=== PATIENT | female | born 1990 | race Caucasian/White ===

== ENCOUNTER 2017-05-06 12:48 | Emergency (ER) | payer OTHER ==
[~2017-05-06] VITALS: Ht 158.8 cm; Wt 61.0 kg
[~2017-05-06 12:48] MED LIST: PRENTAB26 PO
[2017-05-06 12:59] VITALS: TEMP 36.7; Ht 158.8 cm; Wt 61.0 kg
[2017-05-06] MEDS ORDERED: SODIUM CHLORIDE 0.9% 1000ML 500 ML IV STA (13:15)
--- NOTE | 2017-05-06 13:29 | EMERGENCY ROOM VISIT NOTE ---
History Report prepared by Sam: Moira Pickering Under the Supervision of: Dr. Franky Agarwal M.D. First contact with patient: 13:10 Chief Complaint: SHORTNESS OF BREATH Stated Complaint: DIZZY,LIGHT HEADED,SOB Nursing Triage Summary: Patient reports she has been having dizziness intermittently for approx one week also c/o shortness of breath. Patient unable to get into her pcp. History of Present Illness The patient is a 27 year old female who presents to the Emergency Room with complaints of intermittent shortness of breath for the past 6 days. She states that she has episodes where she gets lightheaded, dizzy, short of breath, and feels like she is going to pass out. She has to bend over to catch her breath. The patient has not had much of an appetite for the past 4 days. She feels bloated and nauseated. She thought that she might be dehydrated so she has been trying to drink more water. She notes diarrhea. The patient has had generalized body aches and joint pain. She had a recent injury to one of her legs which resulted in some bruising. She states that her legs have been swollen. Last week she went camping and tubing with her family but denies any recent tick bites. She denies fevers, sore throat, cough, chest pain, vomiting, urinary symptoms, rash, and any sick contacts. She also denies any recent long trips or history of blood clots. The patient has concern that she might be . She states that her current symptoms are similar to how she felt with her previous pregnancies. She denies any missed periods, but states that her periods are irregular so it would be difficult to know. She has had two negative urine tests since her symptoms started. The patient called her PCP's office today and they were unable to see her in the office, so they sent her to the ED for further evaluation. Source of History: patient Onset: 6 days ago Position: other (respiratory) Quality: other (shortness of breath) Timing: intermittent Modifying Factors (Relieving): other (bending over) Associated Symptoms: + nausea, + diarrhea, No fevers, No sorethroat, No cough, No chest pain, No vomiting, No urinary symptoms, No rash Note: Pt notes lightheadedness, dizziness, body aches, and joint pain. Review of Systems See HPI for pertinent positives & negatives. A total of 10 systems reviewed and were otherwise negative. Past Medical & Surgical Medical Problems: (1) Abdominal pain complicating (2) Active labor at term (3) Irregular contractions (4) Family History No pertinent history stated. Social History Smoking Status: Never Smoker Alcohol Use: occasionally Drug Use: none Marital Status: single Occupation Status: unemployed Current/Historical Medications Scheduled Doxycycline Hyclate (Vibramycin), 100 MG PO BID Allergies Coded Allergies: No Known Allergies (Unverified , 08/11/14) Physical Exam Vital Signs Date Time Temp Pulse Resp B/P (MAP) Pulse Ox O2 Delivery O2 Flow Rate FiO2 05/06/17 14:22 62 16 108/65 100 Room Air 05/06/17 13:31 89 111/72 100 81 114/72 66 115/73 05/06/17 12:59 36.7 84 20 116/78 99 Room Air Physical Exam GENERAL: Patient is in no acute distress. HEENT: No acute trauma, normocephalic atraumatic, mucous membranes moist, no nasal congestion, no scleral icterus. NECK: No stridor, no adenopathy, no meningismus, trachea is midline. LUNGS: Clear to auscultation bilaterally, no wheeze, no rhonchi, breath sounds equal. HEART: Without murmurs gallops or rubs, regular rate and rhythm. ABDOMEN: Soft, nontender, bowel sounds positive, no hernias, no peritonitis. EXTREMITIES: No cyanosis or edema, full range of motion of all the joints without pain or difficulty, no signs for acute trauma. NEUROLOGIC: Oriented x 3, no acute motor or sensory deficits, no focal weakness. SKIN: No rash, no jaundice, no diaphoresis. Medical Decision & Procedures ER Provider Diagnostic Interpretation: Orthostatic vital signs are negative. Radiology results as stated below per my review and radiologist interpretation: CHEST ONE VIEW PORTABLE HISTORY: 27 years-old Female EVALUATE ALTERED MENTAL STATUS/WEAKNESS COMPARISON: None available TECHNIQUE: Portable upright AP view of the chest FINDINGS: Cardiomediastinal and hilar silhouettes are within normal limits. No pneumothorax, pleural effusion, focal airspace consolidation or overt pulmonary edema. The bones are grossly intact. Upper abdominal structures are within normal limits. IMPRESSION: Normal chest radiograph. The above report was generated using voice recognition software. It may contain grammatical, syntax or spelling errors. Electronically signed by: Jeremy Gusman M.D. 05/06/2017 1:40 PM Dictated Date/Time: 05/06/2017 1:39 PM Laboratory Results 05/06/17 13:25 Red Blood Count 4.88, Mean Corpuscular Volume 87.1, Mean Corpuscular Hemoglobin 29.1, Mean Corpuscular Hemoglobin Concent 33.4, Mean Platelet Volume 11.0, Neutrophils (%) (Auto) 47.2, Lymphocytes (%) (Auto) 41.7, Monocytes (%) (Auto) 9.2, Eosinophils (%) (Auto) 1.3, Basophils (%) (Auto) 0.4, Neutrophils # (Auto) 2.15, Lymphocytes # (Auto) 1.90, Monocytes # (Auto) 0.42, Eosinophils # (Auto) 0.06, Basophils # (Auto) 0.02 05/06/17 13:25 Test 05/06/17 13:20 05/06/17 13:25 05/06/17 13:35 Urine Color YELLOW Urine Appearance CLEAR (CLEAR) Urine pH 5.5 (4.5-7.5) Urine Specific [place] 1.014 (1.000-1.030) Urine Protein NEG (NEG) Urine Glucose (UA) NEG (NEG) Urine Ketones NEG (NEG) Urine Occult Blood NEG (NEG) Urine Nitrite NEG (NEG) Urine Bilirubin NEG (NEG) Urine Urobilinogen NEG (NEG) Urine Leukocyte Esterase NEG (NEG) White Blood Count 4.56 K/uL (4.8-10.8) Red Blood Count 4.88 M/uL (4.2-5.4) Hemoglobin 14.2 g/dL (12.0-16.0) Hematocrit 42.5 % (37-47) Mean Corpuscular Volume 87.1 fL (80-100) Mean Corpuscular Hemoglobin 29.1 pg (25-34) Mean Corpuscular Hemoglobin Concent 33.4 g/dl (32-36) Platelet Count 189 K/uL (130-400) Mean Platelet Volume 11.0 fL (7.4-10.4) Neutrophils (%) (Auto) 47.2 % Lymphocytes (%) (Auto) 41.7 % Monocytes (%) (Auto) 9.2 % Eosinophils (%) (Auto) 1.3 % Basophils (%) (Auto) 0.4 % Neutrophils # (Auto) 2.15 K/uL (1.4-6.5) Lymphocytes # (Auto) 1.90 K/uL (1.2-3.4) Monocytes # (Auto) 0.42 K/uL (0.11-0.59) Eosinophils # (Auto) 0.06 K/uL (0-0.5) Basophils # (Auto) 0.02 K/uL (0-0.2) RDW Standard Deviation 43.3 fL (36.4-46.3) RDW Coefficient of Variation 13.5 % (11.5-14.5) Immature Granulocyte % (Auto) 0.2 % Immature Granulocyte # (Auto) 0.01 K/uL (0.00-0.02) Anion Gap 6.0 mmol/L (3-11) Est Creatinine Clear Calc Drug Dose 90.4 ml/min Estimated GFR () 124.4 Estimated GFR (Non- 107.3 BUN/Creatinine Ratio 8.1 (10-20) Calcium Level 9.0 mg/dl (8.5-10.1) Magnesium Level 2.1 mg/dl (1.8-2.4) Total Bilirubin 0.7 mg/dl (0.2-1) Aspartate Amino Transf (AST/SGOT) 20 U/L (15-37) Alanine Aminotransferase (ALT/SGPT) 30 U/L (12-78) Alkaline Phosphatase 61 U/L (45-117) Troponin I < 0.015 ng/ml (0-0.045) Total Protein 7.9 gm/dl (6.4-8.2) Albumin 4.2 gm/dl (3.4-5.0) Globulin 3.7 gm/dl (2.5-4.0) Albumin/Globulin Ratio 1.1 (0.9-2) Thyroid Stimulating Hormone (TSH) 5.360 uIu/ml (0.300-4.500) Free Thyroxine 0.95 ng/dl (0.80-1.60) Human Chorionic Gonadotropin, Qual NEG (NEG) Lyme Disease IgG Antibody POS (NEG) Bedside D-Dimer 171 ng/mlFEU (0-450) Laboratory results reviewed by me. Medications Administered Medications (Trade) Dose Ordered Sig/Sanjay Route Start Time Stop Time Status Last Admin Dose Admin Sodium Chloride 500 ml @ 999 mls/hr Q31M STAT IV 05/06/17 13:15 05/06/17 13:45 DC 05/06/17 13:35 999 MLS/HR ECG Indication: SOB/dyspnea Rate (beats per minute): 70 Rhythm: sinus with SA Findings: nonspecific-ST abn, no acute ischemic change ED Course 1311: The patient was evaluated in room B10. A complete history and physical exam was performed. 1315: NSS 500 ml @ 999 mls/hr IV 1515: Vibramycin 100 mg PO 1516: I reassessed the patient at this time. She is feeling better and resting comfortably. I discussed the results and treatment plan with the patient. I answered all pertaining questions that she had. She expressed understanding and verbalized agreement. The patient will be discharged home. Medical Decision Differential diagnoses includes dehydration, Lyme disease, UTI, electrolyte imbalance, anemia, , pneumonia, PE, thyroid disorder. There is no leukocytosis or concerning anemia. No significant electrolyte abnormality, kidney failure or hepatitis. The patient appears to be in a euthyroid state. testing was negative. Orthostatic vital signs were negative. Urinalysis does not show infection. EKG shows a sinus rhythm, no acute ischemia. Cardiac enzyme testing times one is not consistent with acute cardiac injury. Chest film does not show pneumonia, mediastinal widening or pneumothorax. Lyme disease testing was positive. D-dimer testing was negative. With a negative d-dimer and my low suspicion for PE, I will stop the workup for this diagnosis. The patient presents with some fatigue, joint aching, shortness of breath and weakness. Workup here suggests possible Lyme disease. Patient was given IV saline and oral doxycycline. She is being discharged on doxycycline twice a day for 21 days. A send out confirmatory Lyme test is pending. The patient will follow with her doctors office. If worsening, she will return. She was happy with discharge home. Impression Primary Impression: Fatigue Additional Impression: Lyme disease Scribe Attestation The scribe's documentation has been prepared under my direction and personally reviewed by me in its entirety. I confirm that the note above accurately reflects all work, treatment, procedures, and medical decision making performed by me. Departure Information Dispostion Home / Self-Care Prescriptions Doxycycline Hyclate (VIBRAMYCIN) 100 Mg Cap 100 MG PO BID for 21 Days, #42 CAP Prov: Feese, Franky J.,M.D. 05/06/17 Referrals Deidre Xie (PCP) Forms HOME CARE DOCUMENTATION FORM, IMPORTANT VISIT INFORMATION Patient Instructions My [facility] Additional Instructions doxycycline 2x per day for 21 days follow with your [facility] md for a recheck and results of the send out lyme test return if worsening Problem Qualifiers Primary Impression: Fatigue Fatigue type: unspecified Qualified Codes: R53.83 - Other fatigue
--- NOTE | 2017-05-06 13:42 | DIAGNOSTIC IMAGING REPORT ---
CHEST ONE VIEW PORTABLE HISTORY: 27 years-old Female EVALUATE ALTERED MENTAL STATUS/WEAKNESS COMPARISON: None available TECHNIQUE: Portable upright AP view of the chest FINDINGS: Cardiomediastinal and hilar silhouettes are within normal limits. No pneumothorax, pleural effusion, focal airspace consolidation or overt pulmonary edema. The bones are grossly intact. Upper abdominal structures are within normal limits. IMPRESSION: Normal chest radiograph. The above report was generated using voice recognition software. It may contain grammatical, syntax or spelling errors. Electronically signed by: Jeremy Gusman M.D. 05/06/2017 1:40 PM Dictated Date/Time: 05/06/2017 1:39 PM
[2017-05-06 13:46] LABS: BASO % 0.4 %; BASO ABS # 0.02 K/uL (0-0.2); COMPLETE YES; EOS % 1.3 %; HEMATOCRIT 42.5 % (37-47); IG% 0.2 %; LYMPH % 41.7 %; MEAN CELL VOLUME 87.1 fL (80-100); MEAN CORPUSCULAR HEMOGLOBIN 29.1 pg (25-34); MEAN CORPUSCULAR HGB CONC 33.4 g/dl (32-36); MONO % 9.2 %; NEUT % 47.2 %; PLATELET COUNT 189 K/uL (130-400); RED BLOOD COUNT 4.88 M/uL (4.2-5.4); WHITE BLOOD COUNT 4.56 K/uL (4.8-10.8)
[2017-05-06 14:01] LABS: ALT/SGPT 30 U/L (12-78); AST/SGOT 20 U/L (15-37); BLOOD UREA NITROGEN 6 mg/dl (7-18); BUN/CREATININE RATIO 8.1 (10-20); CARBON DIOXIDE 26 mmol/L (21-32); CHLORIDE 108 mmol/L (98-107); CREATININE 0.77 mg/dl (0.60-1.20); GLUCOSE 83 mg/dl (70-99); MAGNESIUM 2.1 mg/dl (1.8-2.4); POTASSIUM 3.6 mmol/L (3.5-5.1); SODIUM 140 mmol/L (136-145)
[2017-05-06 14:12] LABS: ALB/GLOB RATIO 1.1 (0.9-2); ALKALINE PHOSPHATASE 61 U/L (45-117)
[2017-05-06 14:16] LABS: PREG INTERNAL NEGATIVE QC NEG CLEAR BACKGROUND; PREG INTERNAL POSITIVE QC POS CONTROL LINE
[2017-05-06 14:23] LABS: URINE APPEARANCE CLEAR (CLEAR); URINE BILIRUBIN NEG (NEG); URINE COLOR YELLOW; URINE NITRITE NEG (NEG); URINE PH 5.5 (4.5-7.5); URINE SPECIFIC GRAVITY 1.014 (1.000-1.030); UROBILINOGEN NEG (NEG); ZZUR CULT IF INDIC CLEAN CATCH NO
[2017-05-06 14:26] LABS: MANUAL MICROSCOPIC REQUIRED? NO; REVIEW REQ? NO
[2017-05-06 14:58] LABS: LYME DISEASE AB IGG POS (NEG); LYME DISEASE AB IGM EQUIVOCAL (NEG)
[2017-05-06] MEDS ORDERED: DOXYCYCLINE HYCLATE 100 MG CAP PO ONE (15:15)
[2017-05-06] MEDS ORDERED: DOXY100C PO (15:28)
[2017-05-06 15:51] VITALS: BP 99/62; PULSE 75; O2SAT 100
[2017-05-13 10:43] LABS: 18KDIGG BAND REACTIVE (NONREACTIVE); 23KDIGG BAND REACTIVE (NONREACTIVE); 23KDIGM BAND REACTIVE (NONREACTIVE); 28KDIGG BAND REACTIVE (NONREACTIVE); 30KDIGG BAND NONREACTIVE (NONREACTIVE); 39KDIGG BAND REACTIVE (NONREACTIVE); 39KDIGM BAND NONREACTIVE (NONREACTIVE); 41KDIGG BAND REACTIVE (NONREACTIVE); 41KDIGM BAND REACTIVE (NONREACTIVE); 45KDIGG BAND REACTIVE (NONREACTIVE); 58KDIGG BAND REACTIVE (NONREACTIVE); 66KDIGG BAND NONREACTIVE (NONREACTIVE); 93KDIGG BAND REACTIVE (NONREACTIVE)
== END 2017-05-06 15:52 | disposition home or self-care (01) ==
LOC: C.EDB 12:49
DX: R53.83 Other fatigue (principal); A69.20 Lyme disease, unspecified

== ENCOUNTER 2017-05-13 22:28 | Emergency (ER) | payer OTHER ==
[~2017-05-13] VITALS: Ht 158.8 cm; Wt 61.0 kg
[~2017-05-13 22:28] MED LIST changes: +DOXY100C PO; -PRENTAB26 PO
[2017-05-13 22:32] VITALS: TEMP 36.8; Ht 158.8 cm; Wt 61.0 kg
[2017-05-13] MEDS ORDERED: SODIUM CHLORIDE 0.9% 1000ML 1,000 ML IV STA (23:24)
[2017-05-13] MEDS ORDERED: ONDANSETRON INJ 2 MG/ML 2 ML VIAL IV STA (23:28)
[2017-05-13 23:41] VITALS: O2SAT 98
--- NOTE | 2017-05-13 23:41 | EMERGENCY ROOM VISIT NOTE ---
History Report prepared by Sam: Nancy Mars Under the Supervision of: Dr. Melania Pinto D.O. First contact with patient: 23:09 Chief Complaint: DIZZY Stated Complaint: DIZZY,LIGHTHEADED History of Present Illness The patient is a 27 year old female who presents to the Emergency Room with complaints of worsening dizziness starting six hours ago. The patient states that she was here in the ED a week ago and was diagnosed with Lyme disease. The patient states that she was told to come back to the ED if her symptoms worsened and she states that they seemed to worsen greatly. She states that she had episodes of intermittent dizziness, but this has been constant. She states that she got a headache and decided to take Tylenol with no relief. She states that she tried to lie down to take a nap, but had no relief from that either. The patient reports that when she got up after her nap, she fell three times and experienced blurred vision. She reports that this is when she decided to come back to the ED. She complains of a headache, nausea, blurred vision, and feeling like she doesn't have control of her body. The patient denies abdominal pain, ever having vertigo, and ever having symptoms like this before. She notes that she has been taking Doxycycline for a week and has gotten a bad sunburn from it from walking into and out of work from her car. She notes that she was bit by a weird bug the other day and denies ever seeing a tick. She notes a history of irritable bowel syndrome with increased diarrhea from the doxycycline. he patient states that after standing up she currently feels diaphoretic and near syncope. The patient currently rates her pain as a 6/10 in severity. Source of History: patient Onset: six hours ago Position: other (global) Symptom Intensity: 6/10 Quality: other (global) Timing: worsening Associated Symptoms: + headache, + diaphoresis, + nausea, No abdominal pain Note: The patient complains of vision loss, feeling like she doesn't have control of her body, a sunburn, being bit by a bug, and feeling near syncope. The patient denies ever having vertigo, symptoms like this before, and ever seeing a tick. Review of Systems See HPI for pertinent positives & negatives. A total of 10 systems reviewed and were otherwise negative. Past Medical & Surgical Medical Problems: (1) Abdominal pain complicating (2) Active labor at term (3) Irregular contractions (4) Family History Patient reports no known family medical history. Social History Smoking Status: Never Smoker Smokeless Tobacco Use: No Alcohol Use: none Drug Use: none Marital Status: single Occupation Status: unemployed Current/Historical Medications Scheduled Doxycycline Hyclate (Vibramycin), 100 MG PO BID Allergies Coded Allergies: No Known Allergies (Unverified , 05/13/17) Physical Exam Vital Signs Date Time Temp Pulse Resp B/P (MAP) Pulse Ox O2 Delivery O2 Flow Rate FiO2 05/14/17 03:50 63 05/14/17 03:36 73 16 99 05/14/17 03:31 108/66 05/14/17 03:06 65 19 98 05/14/17 03:01 109/65 05/14/17 02:48 113/63 05/14/17 02:36 65 05/14/17 02:06 91 27 05/14/17 01:36 65 21 100 05/14/17 01:31 99/55 05/14/17 01:15 104/66 05/14/17 01:03 64 16 100 05/14/17 00:33 63 22 99 05/14/17 00:03 80 15 98 05/13/17 23:58 103 15 100 05/13/17 23:41 98 05/13/17 23:28 62 13 99 05/13/17 23:28 71 05/13/17 23:25 124/68 05/13/17 22:32 36.8 77 18 117/76 98 Room Air Physical Exam HEENT: Head - normocephalic and atraumatic. Pupils are equal, round, and reactive to light. Extraocular eye muscles are intact and sclera are anicteric. There is no obvious nystagmus. Ears - bilaterally patent canals with noninjected tympanic membranes and no evidence of hemotympanum. Nose - moist nasal mucosa without discharge. Mouth - moist buccal mucosa. Oropharynx is nonerythematous and there is no tonsillar exudate or edema noted. Neck: Supple; no JVD, nuchal rigidity, cervical lymphadenopathy, or auscultated bruits. Heart: Regular rate and rhythm. There is a normal S1 and S2 with no murmurs, clicks, or gallops appreciated. Lungs: Clear to auscultation bilaterally with no wheezes, rales, or rhonchi. Abdomen: Soft, completely nontender, nondistended, with good bowel sounds. There are no palpable pulsatile masses or hepatosplenomegaly. There is no guarding, rigidity, or rebound noted. Extremities: No evidence of cyanosis, clubbing, or edema. There are easily palpable peripheral pulses. The patient has an area of erythema on the right lateral thigh which looks consistent with an insect bite. No obvious erythema migrans. Neuro:The patient is awake and alert, oriented to day, time, and place. Muscle strength is 5/5 in all 4 extremities. 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 There are no cerebellar signs. Cranial nerves 2-12 are intact. Patellar reflexes are 2/4. Medical Decision & Procedures Laboratory Results 05/13/17 23:40 Red Blood Count 4.70, Mean Corpuscular Volume 87.7, Mean Corpuscular Hemoglobin 30.0, Mean Corpuscular Hemoglobin Concent 34.2, Mean Platelet Volume 11.3, Neutrophils (%) (Auto) 45.5, Lymphocytes (%) (Auto) 42.7, Monocytes (%) (Auto) 9.5, Eosinophils (%) (Auto) 1.6, Basophils (%) (Auto) 0.5, Neutrophils # (Auto) 2.60, Lymphocytes # (Auto) 2.44, Monocytes # (Auto) 0.54, Eosinophils # (Auto) 0.09, Basophils # (Auto) 0.03 05/13/17 23:40 Test 05/13/17 23:40 05/13/17 23:45 05/14/17 02:25 White Blood Count 5.71 K/uL (4.8-10.8) Red Blood Count 4.70 M/uL (4.2-5.4) Hemoglobin 14.1 g/dL (12.0-16.0) Hematocrit 41.2 % (37-47) Mean Corpuscular Volume 87.7 fL (80-100) Mean Corpuscular Hemoglobin 30.0 pg (25-34) Mean Corpuscular Hemoglobin Concent 34.2 g/dl (32-36) Platelet Count 175 K/uL (130-400) Mean Platelet Volume 11.3 fL (7.4-10.4) Neutrophils (%) (Auto) 45.5 % Lymphocytes (%) (Auto) 42.7 % Monocytes (%) (Auto) 9.5 % Eosinophils (%) (Auto) 1.6 % Basophils (%) (Auto) 0.5 % Neutrophils # (Auto) 2.60 K/uL (1.4-6.5) Lymphocytes # (Auto) 2.44 K/uL (1.2-3.4) Monocytes # (Auto) 0.54 K/uL (0.11-0.59) Eosinophils # (Auto) 0.09 K/uL (0-0.5) Basophils # (Auto) 0.03 K/uL (0-0.2) RDW Standard Deviation 43.5 fL (36.4-46.3) RDW Coefficient of Variation 13.4 % (11.5-14.5) Immature Granulocyte % (Auto) 0.2 % Immature Granulocyte # (Auto) 0.01 K/uL (0.00-0.02) Anion Gap 5.0 mmol/L (3-11) Est Creatinine Clear Calc Drug Dose 88.1 ml/min Estimated GFR () 120.6 Estimated GFR (Non- 104.0 BUN/Creatinine Ratio 12.8 (10-20) Calcium Level 9.0 mg/dl (8.5-10.1) Total Bilirubin 0.6 mg/dl (0.2-1) Aspartate Amino Transf (AST/SGOT) 20 U/L (15-37) Alanine Aminotransferase (ALT/SGPT) 28 U/L (12-78) Alkaline Phosphatase 60 U/L (45-117) Total Protein 7.7 gm/dl (6.4-8.2) Albumin 4.0 gm/dl (3.4-5.0) Globulin 3.7 gm/dl (2.5-4.0) Albumin/Globulin Ratio 1.1 (0.9-2) Urine Color YELLOW Urine Appearance CLEAR (CLEAR) Urine pH 7.0 (4.5-7.5) Urine Specific [place] 1.009 (1.000-1.030) Urine Protein NEG (NEG) Urine Glucose (UA) NEG (NEG) Urine Ketones NEG (NEG) Urine Occult Blood NEG (NEG) Urine Nitrite NEG (NEG) Urine Bilirubin NEG (NEG) Urine Urobilinogen NEG (NEG) Urine Leukocyte Esterase NEG (NEG) Urine Test NEG (NEG) CSF Color COLORLESS CSF Appearance CLEAR CSF WBC 1 /uL (0-5) CSF RBC 0 /uL (0) CSF Xanthrochromic NO XANTHOCHROMIA CSF Cell Count Tube # 4 CSF Chemistry Tube # 2 CSF Glucose 53 mg/dl (40-70) CSF Total Protein 55.2 mg/dl (15.0-45.0) Laboratory results per my review. Medications Administered Medications (Trade) Dose Ordered Sig/Sanjay Route Start Time Stop Time Status Last Admin Dose Admin Sodium Chloride 1,000 ml @ 999 mls/hr Q1H1M STAT IV 05/13/17 23:24 05/14/17 00:24 DC 05/14/17 00:05 999 MLS/HR Ondansetron HCl (Zofran Inj) 4 mg NOW STAT IV 05/13/17 23:28 05/13/17 23:30 DC 05/14/17 00:04 4 MG Procedure 2324: Ordered NSS 1000 ml @ 999 mls/hr IV. 2328: Ordered Zofran Inj 4 mg IV. Lumbar Puncture Indication: neurological symptoms with associated Lyme. Verbal consent was obtained after the risks and benefits were explained, including but not limited to headache, bleeding/clotting, scarring, infection, pain, and bone/joint/nerve damage. At this time, the risks of the procedure are less than the risks of NOT performing the procedure. A time out was taken and the correct patient and site identified. The patient was placed in the draped over a tray table position and the back was prepped with betadine and draped in the standard fashion. The L3 intervertebral space was identified, anesthetized locally with 1% lidocaine without epinephrine, and the spinal needle was inserted through the skin with the bevel parallel to the dural fibers. The needle was carefully advanced into the lumbar cistern and 4 tubes of clear CSF was obtained. The stylet was replaced and the needle was removed. A bandaid was placed and the patient was placed in the supine position. The patient tolerated the procedure well and there were no complications. ECG Indication: other (dizziness) Rate (beats per minute): 64 Rhythm: normal sinus Findings: no acute ischemic change, no ectopy ED Course 2315: Past medical records reviewed. The patient was evaluated in room B5. A complete history and physical exam was performed. Laboratory studies were drawn as above. 2324: Ordered NSS 1000 ml @ 999 mls/hr IV. 2328: Ordered Zofran Inj 4 mg IV. 0138: I reevaluated the patient and she still feels like she has a loss of control of legs. We discussed the risks and benefits of doing a spinal tap. I performed a spinal tap. Please see procedure note. 0330: Discussed the patient's case with Dr. Jazmyne Nagy. She suggested the patient follow up with her PCP in the next 48 hours if her legs remain weak for imaging. 0338: Upon reevaluation, the patient is okay. Her headache has improved. I discussed findings and results with her. She verbalized agreement of the treatment plan. The patient was discharged home. Medical Decision This is a 27-year-old female patient who presents to the emergency department with sudden onset of dizziness, headache, and lower extremity weakness. Differential diagnoses include lyme carditis, lyme meningitis, disseminated Lyme disease, vertigo, MS, or dehydration. LABS: Negative . Negative urinalysis. No leukocytes. Normal H&H. Normal renal function. Normal LFTs. CSF: 1 white blood cell 0 red blood cells Glucose 53 Protein 55 No Xanthrochromic No organisms The patient was diagnosed with Lyme disease one week ago and started on doxycycline. She decided onset tonight of headache, dizziness and the feeling that she lost control of her lower extremities. We considered the possibility of vertigo, dehydration, but also the possibility of disseminated Lyme disease or Lyme meningitis. The patient had no neurological findings on exam. She had no leukocytosis or fever. She did not feel sick. Also, she had a negative spinal tap. The Lyme testing in the CSF is a reference send out test. The patient is feeling better at the time of discharge. She will follow up with her PCP in the next 48 hours if symptoms persist as the patient may require CT or MRI testing. She was encouraged to continue taking the course of doxycycline return here to the emergency department if symptoms worsened. Consults Time Called: [phone] Consulting Physician: Dr. Jazmyne Nagy Returned Call: [phone] Discussed the patient's case with Dr. Jazmyne Nagy. She suggested the patient follow up with her PCP in the next 48 hours if her legs remain weak for imaging. Impression Primary Impression: Fall Additional Impression: Lyme disease Scribe Attestation The scribe's documentation has been prepared under my direction and personally reviewed by me in its entirety. I confirm that the note above accurately reflects all work, treatment, procedures, and medical decision making performed by me. Departure Information Dispostion Home / Self-Care Referrals No Doctor, Assigned (PCP) Forms HOME CARE DOCUMENTATION FORM, IMPORTANT VISIT INFORMATION Patient Instructions My [facility] Additional Instructions Rest. Keep yourself well-hydrated. Return to the ER for worsening neurological symptoms, fevers, more severe headaches Follow up with PCP in next 2 days for a recheck. Problem Qualifiers Primary Impression: Fall Encounter type: initial encounter Qualified Codes: W19.XXXA - Unspecified fall, initial encounter
[2017-05-14 00:04] LABS: BASO % 0.5 %; BASO ABS # 0.03 K/uL (0-0.2); COMPLETE YES; EOS % 1.6 %; HEMATOCRIT 41.2 % (37-47); IG% 0.2 %; LYMPH % 42.7 %; LYMPH ABS # 2.44 K/uL (1.2-3.4); MEAN CELL VOLUME 87.7 fL (80-100); MEAN CORPUSCULAR HGB CONC 34.2 g/dl (32-36); MEAN PLATELET VOLUME 11.3 fL (7.4-10.4); MONO % 9.5 %; NEUT % 45.5 %; PLATELET COUNT 175 K/uL (130-400); WHITE BLOOD COUNT 5.71 K/uL (4.8-10.8)
[2017-05-14 00:06] LABS: URINE APPEARANCE CLEAR (CLEAR); URINE BILIRUBIN NEG (NEG); URINE COLOR YELLOW; URINE NITRITE NEG (NEG); URINE SPECIFIC GRAVITY 1.009 (1.000-1.030); UROBILINOGEN NEG (NEG)
[2017-05-14 00:14] LABS: MANUAL MICROSCOPIC REQUIRED? NO; REVIEW REQ? NO
[2017-05-14 00:23] LABS: BUN/CREATININE RATIO 12.8 (10-20); CREATININE 0.79 mg/dl (0.60-1.20); POTASSIUM 3.9 mmol/L (3.5-5.1)
[2017-05-14 00:26] LABS: ALB/GLOB RATIO 1.1 (0.9-2)
[2017-05-14 02:44] LABS: CSF APPEARANCE CLEAR; CSF CHEMISTRY TUBE # 2; CSF COLOR COLORLESS; CSF XANTHOCHROMIC NO XANTHOCHROMIA
[2017-05-14 03:01] LABS: CSF TOTAL PROTEIN 55.2 mg/dl (15.0-45.0)
[2017-05-14 03:31] VITALS: BP 108/66
[2017-05-14 03:36] VITALS: O2SAT 99
[2017-05-14 03:50] VITALS: PULSE 63
[2017-05-19 08:01] LABS: LYME IGM CSF NO BANDS DETECTED
--- NOTE | 2017-05-23 12:20 | Pharmacy Progress Note ---
ED Pharmacist Culture FollowUp Date of Service: May 23, 2017. CSF Lyme IgG and IgM Immunoblots were forwarded to me today. The patient had been dx with Lyme Dz ~1wk prior to presenting to the ER again on 05/13 with c/o dizziness, h/a, nausea and blurred vision. In addition to this she stated she had been falling and felt like she had less control over her lower extremities. She did not have a fever, vertigo, or nuchal rigidity per provider's assessment. Nor did she have a leukocytosis or CSF consistent with meningitis. She was discharged from the ED and instructed to continue the Doxycycline that was prescribed earlier and was asked to f/u with PCP in 48 hours. The CSF Lyme IgG and IgM revealed the presence of IgG antibodies, however the usefulness of this test to dx lyme meningitis is questionable as one needs to compare the concentrations of anti-lyme antibodies in both the CSF and serum after one has diluted each fluid so that there are equivalent concentrations of immunoglobulins. At this point on measures the amounts of anti-lyme antibodies in each fluid. An increased concentration of anti-Lyme antibodies relative to the serum is consistent with lyme meningitis. This additional testing was not performed, thus the presence of antibodies in the CSF could represent compartmental antibody production or transudation of antibodies from the plasma as well and does not definitively rule in meningitis. Dr Saldana had already reviewed these results and asked that someone contact the patient to be sure she has f/u with her PCP. I did call the patient today ), and she stated that she had cancelled her appt with Dr Smith and [place]cheduled [place] [facility] [place] states that she still has light- headedness and dizziness as well as nausea and diarrhea. He stated she does get ARMENTA's but not as bad as the day she presented to the ER. She states she is attempting to stay well hydrated. I advised the patient that if her symptoms are concerning she should have f/u sooner and that returning to the ER is an option.
== END 2017-05-14 03:54 | disposition home or self-care (01) ==
LOC: C.EDB 22:29
DX: R42 Dizziness and giddiness (principal); R51 Headache; W19.XXXA Unspecified fall, initial encounter; A69.20 Lyme disease, unspecified

== ENCOUNTER 2017-09-01 18:21 | Emergency (ER) | payer OTHER ==
[~2017-09-01] VITALS: Ht 158.8 cm; Wt 60.7 kg
[2017-09-01 18:26] VITALS: Ht 158.8 cm; Wt 60.7 kg
[2017-09-01] MEDS ORDERED: AMOX500C3 PO (18:49)
[2017-09-01 18:53] VITALS: BP 120/80; PULSE 70; TEMP 36.5; O2SAT 97
--- NOTE | 2017-09-01 19:02 | EMERGENCY ROOM VISIT NOTE ---
History First contact with patient: 18:40 Chief Complaint: SORETHROAT Stated Complaint: RASH History of Present Illness The patient is a 27 year old female who presents to the Emergency Room with complaints of a sore throat and rash on the abdomen. The patient reports that she has had the rash for the past 4 days, and developed a sore throat yesterday. Her daughter was just evaluated in the emergency department with a positive rapid group A strep swab. Her daughter also has a similar rash on the abdomen. The patient denies any other significant runny nose, congestion or cough, and rates her overall discomfort a 2 out of 10. She has not had any difficulty swallowing, fevers or chills, headache, chest pain, abdominal pain, urinary symptoms or diarrhea. Review of Systems 10 system review was performed and was negative except for pertinent positives and negatives as indicated in history of present illness Past Medical/Surgical History Medical Problems: (1) Abdominal pain complicating (2) Active labor at term (3) Irregular contractions (4) Family History Patient reports no known family medical history. Social History Smoking Status: Never Smoker Alcohol Use: none Drug Use: none Marital Status: single Occupation Status: unemployed Current/Historical Medications Scheduled Amoxicillin (Amoxil), 500 MG PO TID Physical Exam Vital Signs Date Time Temp Pulse Resp B/P (MAP) Pulse Ox O2 Delivery O2 Flow Rate FiO2 09/01/17 18:53 36.5 70 18 120/80 97 09/01/17 18:36 Room Air 09/01/17 18:26 36.5 70 18 120/80 97 Room Air Physical Exam CONSTITUTIONAL: Healthy and well nourished. Alert and oriented X 3 with positive affect. Patient does not appear acutely or toxic. HEENT: Normocephalic, atraumatic. Pupils equal, round and reactive. No facial edema noted. Ears and nares are clear. OROPHARYNX: The patient has symmetric bilateral tonsillar hypertrophy with exudates. Uvula is midline. Negative trismus. She does have erythema across the soft palate. No vesicles or pustules. NECK: Full active range of motion without discomfort. LYMPHATICS: The patient does have mild anterior cervical chain adenopathy. RESPIRATORY: Clear to auscultation bilaterally with no wheezing, crackles, rhonchi or stridor. CARDIOVASCULAR: Regular rate and rhythm with no murmurs, rubs or gallops. GASTROINTESTINAL: Bowel sounds present in all quadrants. MUSCULOSKELETAL: Full range of motion of all joints without discomfort. INTEGUMENTARY: The patient has a scarlatiniform type rash on the abdomen. No vesicles, pustules or desquamation noted. NEUROLOGIC: No focal neurologic deficits noted. Medical Decision & Procedures ED Course Patient history and physical exam were performed. Nurse's notes were reviewed. Vital signs were reviewed and were normal. Examination shows an exudate of tonsillitis with anterior cervical chain adenopathy and scarlatiniform type rash on the abdomen. She also has a daughter that tested positive for group A tonsillitis. The patient will therefore be empirically treated with amoxicillin 500 mg 3 times a day 10 days. A sore throat handout was provided. She was instructed to alternate ibuprofen and Tylenol as needed for additional pain relief. The patient was encouraged to follow-up with her PCP in 2-3 days for recheck, returning to the emergency department sooner for any progressively worsening symptoms. The patient was happy with plan of care, voiced understanding of all discharge instructions, and denied any significant discomfort at the time of discharge. Medical Decision Medication Reconcilliation Current Medication List: was personally reviewed by nm Blood Pressure Screening Patient's blood pressure: Normal blood pressure Impression Primary Impression: Exudative tonsillitis Additional Impressions: Scarlatiniform rash Exposure to group A Streptococcus Departure Information Dispostion Home / Self-Care Prescriptions Amoxicillin (AMOXIL) 500 Mg Cap 500 MG PO TID for 10 Days, #30 CAP Prov: Jeramy Rush PA 09/01/17 Forms HOME CARE DOCUMENTATION FORM, IMPORTANT VISIT INFORMATION Patient Instructions Sore Throats Self Care, [facility] Additional Instructions Complete all amoxicillin antibiotics as prescribed. Read sore throat handout. Ibuprofen 600 mg and/or Tylenol 1000 mg every 8 hours. You may also alternate these medications for more effective pain relief: Ibuprofen --4 HRS--> Tylenol --4 HRS--> ibuprofen --4 HRS--> Tylenol .... Follow-up with your family doctor in 2-3 days for recheck. Throw away toothbrush after 48 hours of antibiotic treatment. Problem Qualifiers
== END 2017-09-01 18:53 | disposition home or self-care (01) ==
LOC: C.EDB 18:22 → C.EDD 18:53
DX: J03.90 Acute tonsillitis, unspecified (principal); L53.8 Other specified erythematous conditions; Z20.818 Contact with and (suspected) exposure to other bacterial communicable diseases

== ENCOUNTER → 2017-10-24 | Outpatient (CLI) | payer OTHER | END | disposition home or self-care (01) | LOC: C.LAB1850 12:00 | PROVIDERS: ATTEND Physician Assistant | DX: N92.6 Irregular menstruation, unspecified (principal) ==

== ENCOUNTER 2019-01-23 21:30 | Inpatient (IN) ==
[2019-01-24] MEDS ORDERED: ONDANSETRON INJ 2 MG/ML 2 ML VIAL IV PRN (01:18)
[2019-01-24] MEDS ORDERED: LACTATED RINGER'S 1,000 ML IV PRN ×3 (01:19→16:42)
[2019-01-24] MEDS ORDERED: ONDANSETRON INJ 2 MG/ML 2 ML VIAL ONE (01:23)
[2019-01-24 01:39] LABS: Hematocrit (blood only) 36.9 % (37-47); Hemoglobin 12.7 g/dL (12.0-16.0); Mean Corpuscular Volume 86.8 fL (80-100); Mean Platelet Volume 12.7 fL (7.4-10.4); Platelet Count 167 K/uL (130-400); RDW Coefficient of Variation 12.8 % (11.5-14.5); RDW Standard Deviation 40.5 fL (36.4-46.3); Red Blood Count 4.25 M/uL (4.2-5.4); White Blood Count 10.59 K/uL (4.8-10.8)
[2019-01-24 01:41] LABS: Mean Corpuscular Hgb Conc 34.4 g/dL (32-36)
--- NOTE | 2019-01-24 10:59 | History and Physical Report ---
DATE OF ADMISSION: 01/24/2019 CHIEF COMPLAINT: Contractions, loss of mucus plug, intrauterine , 37 weeks. HISTORY OF PRESENT ILLNESS: The patient is a 29-year-old 3, para 2 general health is good. She has had an uneventful course, has had 2 ultrasounds. Her due date is 02/10/2019. Her obstetrical history is as follows. In 2010, she had a girl, 7 pounds 11 ounces, spontaneous vaginal delivery at 40 weeks, 10-hour labor, 1 hour push. In 2013, another girl, 7 pounds 7 ounces, spontaneous vaginal delivery, 41 weeks, 10-hour labor, 5-minute push. Her problems with this began on 01/23/2019 at 11:00 a.m. in the morning, she began to have contractions. First, they were only several contractions an hour and then she lost her mucus plug and then she began to have contractions every 5-6 minutes. She had that for several hours. She was told to come to maternity where she was examined and kept overnight. On admission, her cervix was about 3 cm. PAST MEDICAL HISTORY: She has 2 girls in good health. ALLERGIES: No known drug allergies. PAST SURGICAL HISTORY: No previous surgery. PAST MEDICAL HISTORY: No history of rheumatic fever, heart disease, heart murmur, diabetes, tuberculosis. SOCIAL HISTORY: No smoking, no excessive alcohol. Works at [employer] [place]. FAMILY HISTORY: Mom is 53 in good health. Father 53 in good health. Three sisters and 3 brothers in good health. REVIEW OF SYSTEMS: HEAD: No symptoms of frequent or severe headaches. EYES: No symptoms of blurred vision, double vision. She has IVS. PHYSICAL EXAMINATION: GENERAL: Well-developed, well-nourished 29-year-old white female, alert, oriented x3 and cooperative in no acute distress, appeared her stated age. EYES: Conjunctivae are pink. Sclerae white, no evidence of jaundice. EARS: Had normal light reflex bilaterally. NOSE: Had normal mucosa. Septum is midline. There were no polyps. THROAT: Had no erythema or evidence of infection. Teeth are in good state of repair. HEAD: Normocephalic, normal distribution of hair. NECK: Supple. Trachea midline. Thyroid is not enlarged. There is no adenopathy appreciated. Both carotids are of good intensity. CHEST: Clear to auscultation and percussion. No wheezes, rales or rhonchi appreciated. HEART: Had a regular rhythm. S1 and S2 were normal. ABDOMEN: Revealed term size fetus. Contractions were palpable about every 5 minutes. PELVIC: Cervix posterior, 4+, moderately soft. Membranes bulged with a contraction, about 80% effaced. MUSCULOSKELETAL: Revealed no calf tenderness. IMPRESSIONS OF THIS CASE: Intrauterine , 37 weeks gestation, early labor.
[2019-01-24] MEDS ORDERED: OXYTOCIN 30 UNITS/500 ML BAG IV PRN ×2 (13:58→19:36)
[2019-01-24] MEDS: LACTATED RINGER'S 1,000 ML IV SCH ×2 (14:36→16:16)
[2019-01-24] MEDS ORDERED: BUPIVACAINE 0.25% 30 ML VIAL ONE (15:22)
[2019-01-24] MEDS ORDERED: fentaNYL citrate 100 MCG/2 ML VIAL ONE (15:23)
[2019-01-24] MEDS ORDERED: ePHEDrine sulfate 50 MG/ML AMP ONE (15:23)
[2019-01-24] MEDS ORDERED: fentaNYL 2MCG/ML ROPIV 1.25MG/ML 100 ML BAG EPI ONE (15:24)
[2019-01-24] MEDS ORDERED: ePHEDrine sulfate 50 MG/ML AMP IV PRN (16:42)
[2019-01-24] MEDS ORDERED: fentaNYL 2MCG/ML ROPIV 1.25MG/ML 100 ML BAG EPI PRN (16:42)
[2019-01-24] MEDS ORDERED: NALOXONE HCL 1 MG in SODIUM CHLORIDE 0.9% 1000ML 1,000 ML IV PRN (16:42)
[2019-01-24] MEDS ORDERED: DiphenhydrAMINE HCL 50 MG/ML VIAL IV PRN (16:42)
[2019-01-24] MEDS ORDERED: NALBUPHINE HCL INJ 10 MG/ML AMP IV PRN (16:42)
[2019-01-24] MEDS ORDERED: NALOXONE HCL 0.4 MG/1 ML VIAL/CARP IV PRN (16:42)
[2019-01-24] MEDS ORDERED: ACETAMINOPHEN W/CODEINE #3 1 TAB PO PRN (19:36)
[2019-01-24] MEDS ORDERED: DIPHTHERIA/TETANUS/PERTUSSIS 0.5 ML SYR/VIAL IM ONE (19:36)
[2019-01-24] MEDS ORDERED: BENZOCAINE 20% AER SPR 82.5 GM CAN EXT PRN (19:36)
[2019-01-24] MEDS ORDERED: HYDROCORTISONE ACETATE 25 MG SUPP PR PRN (19:36)
[2019-01-24] MEDS ORDERED: OXYCODONE/ACETAMINOPHEN 5mg/325mg TAB PO PRN (19:36)
[2019-01-24] MEDS ORDERED: BISACODYL 10 MG SUPP PR PRN (19:36)
[2019-01-24] MEDS ORDERED: SUPERCREAM 0.870% 15 GM JAR EXT PRN (19:36)
[2019-01-24] MEDS: ACETAMINOPHEN 325 MG TAB PO PRN (20:13)
--- NOTE | 2019-01-24 20:30 | Delivery Summary ---
DATE OF OPERATION: 01/24/2019 DELIVERY NOTE She is a 3, para 3. Blood type is O negative, group B strep, O negative, was brought in the day prior to admission, suspicion of early labor. She was about 37 weeks 4 days at the time of admission. She was kept overnight and initially on admission she was about 3 cm. The next day when we called her in active labor, she was 6 cm with bulging membranes with contraction. She was then given IV Pitocin to make her contractions more regular. Membranes were ruptured. She requested and received epidural anesthesia for pain control from which she got good pain relief. She then dilated the cervix. The head came right down. She pushed out a live male infant via direct occiput anterior position over an intact perineum. The was suctioned through the mouth and the nose. Shoulders were delivered without difficulty. Cord was clamped, cut by the father. Cord blood was taken. With IV Pitocin running, the placenta was removed intact. Then inspection of the perineum revealed a periurethral laceration on the right side that was bleeding, so was infiltrated with local and then sutured with a running 3-0 Vicryl. Following this, hemostasis was excellent. There were no sponges or hematoma in the vagina. Estimated blood loss 100 mL. Estimated Apgars were 8 and 9 respectively. MTDD
[2019-01-25] MEDS: IBUPROFEN 600 MG TAB PO PRN ×5 (04:00→22:01)
[2019-01-25 06:12] LABS: Hematocrit (blood only) 34.6 % (37-47); Hemoglobin 11.5 g/dL (12.0-16.0); Mean Corpuscular Hgb Conc 33.2 g/dL (32-36); Mean Corpuscular Volume 88.9 fL (80-100); Mean Platelet Volume 12.4 fL (7.4-10.4); Platelet Count 136 K/uL (130-400); RDW Coefficient of Variation 12.9 % (11.5-14.5); RDW Standard Deviation 41.4 fL (36.4-46.3); Red Blood Count 3.89 M/uL (4.2-5.4); White Blood Count 11.51 K/uL (4.8-10.8)
--- NOTE | 2019-01-25 07:14 | Anesthesia Procedure Note ---
Date of Service January 25, 2019 Anesthesia Post Epidural Note Vital Signs Vital Signs: Temp Pulse Resp BP Pulse Ox 36.4 C L 70 18 120/79 95 01/25/19 04:00 01/25/19 04:00 01/25/19 04:00 01/25/19 04:00 01/24/19 19:37 Notes Mental Status: alert / awake / arousable and participated in evaluation Nausea / Vomiting: adequately controlled Pain: adequately controlled Airway Patency, RR, SpO2: stable & adequate BP & HR: stable & adequate Hydration State: stable & adequate Neuraxial Anesthesia: was administered and sensory block is resolving Anesthetic Complications: no major complications apparent and Pt Satisfied with anesthetic care Epidural: Removed without complications and With tip intact
[2019-01-25] MEDS: PRENATAL VITAMIN 1 TAB PO SCH (07:39)
[2019-01-25] MEDS: DOCUSATE SODIUM 100 MG CAP PO SCH ×3 (07:39→20:29)
--- NOTE | 2019-01-25 08:06 | Obstetrical Progress Note ---
Date of Service January 25, 2019 Subjective Patient is seen and examined. She feels well, no complaints. Ambulating without dizziness Voiding without difficulty Tolerating regular diet with out N&V Bleeding is minimal No fever/ chills/ CP/ SOB/ N&V/ Leg pain Breast feeding without problems Vital Signs Temp Pulse Pulse Pulse Resp BP BP 01/25/19 07:46 36.8 C 90 20 127/88 01/25/19 04:00 36.4 C L 70 18 01/25/19 00:10 36.5 C 70 18 01/24/19 22:15 37.0 C 81 18 01/24/19 21:45 18 01/24/19 21:29 82 113/58 L 01/24/19 21:19 86 120/56 L 01/24/19 21:11 18 01/24/19 21:09 86 122/58 L 01/24/19 20:59 74 125/59 L 01/24/19 20:57 18 01/24/19 20:49 82 122/74 01/24/19 20:39 95 H 132/60 01/24/19 20:32 18 01/24/19 20:29 84 130/66 01/24/19 20:27 18 01/24/19 20:19 86 126/76 01/24/19 20:17 18 01/24/19 20:12 18 01/24/19 20:09 83 120/64 BP Pulse Ox 01/25/19 07:46 98 01/25/19 04:00 120/79 01/25/19 00:10 112/69 01/24/19 22:15 111/67 01/24/19 21:45 01/24/19 21:29 01/24/19 21:19 01/24/19 21:11 01/24/19 21:09 01/24/19 20:59 01/24/19 20:57 01/24/19 20:49 01/24/19 20:39 01/24/19 20:32 01/24/19 20:29 01/24/19 20:27 01/24/19 20:19 01/24/19 20:17 01/24/19 20:12 01/24/19 20:09 01/25/19 01/25/19 Range/Units 05:45 05:45 WBC 11.51 H (4.8-10.8) K/uL RBC 3.89 L (4.2-5.4) M/uL Hgb 11.5 L (12.0-16.0) g/dL Hct 34.6 L (37-47) % MCV 88.9 (80-100) fL MCH 29.6 (25-34) pg MCHC 33.2 (32-36) g/dL RDW Std Deviation 41.4 (36.4-46.3) fL RDW Coeff of Sarah 12.9 (11.5-14.5) % Plt Count 136 (130-400) K/uL MPV 12.4 H (7.4-10.4) fL Blood Type Pending Antibody Screen Pending Screen Pending PE: General: Alert, orientedx3, NAD Abd: soft, NT, fundus firm, below Umbilicus Perineum intact, Lochia rubra minimal Ext; NT, no edema AP: 29 yo s/p , ppd# 1 VSS Afebrile doing well Continue routine care All questions were answered D/C home tomorrow Physical Exam Vital Signs (Past 24 Hours): Last Vital Signs Temp 36.8 C 01/25/19 07:46 Pulse 90 01/25/19 07:46 Resp 20 01/25/19 07:46 BP 127/88 01/25/19 07:46 Pulse Ox 98 01/25/19 07:46
[2019-01-25] MEDS: ACETAMINOPHEN 325 MG TAB PO PRN (14:14)
[2019-01-25] MEDS ORDERED: BISACODYL 5 MG TABEC PO SCH (20:00)
[2019-01-26 06:44] LABS: Hematocrit (blood only) 33.7 % (37-47); Hemoglobin 11.3 g/dL (12.0-16.0)
--- NOTE | 2019-01-26 08:21 | Obstetrical Progress Note ---
Date of Service January 26, 2019 Assessment & Plan (1) normal course: PPD #2 pt doing well d/c home with instructions Subjective Ambulation: ambulating normally Voiding: no voiding problems Passing Gas:: Yes Diet Tolerance:: regular diet Lochia:: Small Feeding Type:: breast feeding Review of Systems All systems reviewed & are unremarkable except as noted in HPI & below Physical Exam Vital Signs (Past 24 Hours) Last Vital Signs Temp 36.4 C L 01/26/19 07:25 Pulse 65 01/26/19 07:25 Resp 16 01/26/19 07:25 BP 116/75 01/26/19 07:25 Pulse Ox 97 01/26/19 07:25 Constitutional WD/WN, vitals as above well developed and well nourished Eyes PERRL, conjunctivae normal, anicteric sclerae Neck trachea midline, no thyromegaly Respiratory normal respiratory effort, lungs clear to auscultation Auscultation: no crackles, no rales and no wheezes Cardiovascular RRR, no murmur, no edema Gastrointestinal (Abdomen) normal bowel sounds, soft, nontender, no hepatosplenomegaly Uterus is below umbilicus Musculoskeletal no cyanosis or clubbing, extremities motor strength 5/5 Skin no rashes, warm and dry Neurologic patellar DTR's 2+ bilat, sensation intact Psychiatric A+Ox3, euthymic affect Genitourinary normal external appearance
[2019-01-26] MEDS: IBUPROFEN 600 MG TAB PO PRN (09:14)
[2019-01-26] MEDS: DOCUSATE SODIUM 100 MG CAP PO SCH (09:14)
[2019-01-26] MEDS: PRENATAL VITAMIN 1 TAB PO SCH (09:14)
[2019-01-26] MEDS: ACETAMINOPHEN 325 MG TAB PO PRN (11:22)
== END 2019-01-26 14:55 | disposition home or self-care (01) | DRG 807 ==
LOC: OPB 21:30 → 4S1 21:31 → 4S2 01-24 22:09

== ENCOUNTER 2025-05-05 19:35 | Inpatient (IN) ==
[2025-05-05] MEDS ORDERED: ACETAMINOPHEN 325 MG TAB PO PRN (19:58)
[2025-05-05 21:13] LABS: Hematocrit (blood only) 34.4 % (37.0-47.0); Hemoglobin 11.2 g/dl (12.0-16.0); Mean Corpuscular Hemoglobin 26.7 pg (25.0-34.0); Mean Corpuscular Volume 82.1 fL (80.0-100.0); Platelet Count 179 K/uL (130-400); RDW Standard Deviation 42.0 fL (36.4-46.3); Red Blood Count 4.19 M/uL (4.20-5.40); White Blood Count 10.27 K/ul (4.8-10.8)
[2025-05-05 21:14] LABS: Immature Granulocytes # (auto) 0.08 K/uL (0.01-0.20); Immature Granulocytes % (auto) 0.8 %
[2025-05-05] MEDS ORDERED: CALCIUM CARBONATE 500 MG CHEWABLE TAB PO PRN (21:43)
[2025-05-05] MEDS ORDERED: LIDOCAINE 1% LOCAL 20 ML VIAL INFIL PRN (21:43)
--- NOTE | 2025-05-05 21:50 | History & Physical Report ---
Date of Service May 05, 2025 Assessment & Plan (1) Active labor at term: Plan: 35-year-old -0-0-3 at 39 weeks of gestation presenting today with contractions and cervical change, Vital signs stable afebrile, GBS negative, heart rate reassuring, Plan admit, monitor, labs, patient desires epidural for pain Continue to monitor closely, Anticipate (2) Hypothyroidism affecting in third trimester: History of Present Illness Primary Care Provider: Lalo Mcfarland MD Patient is a 34-year-old -0-0-3 at 39 weeks of gestation who has been feeling contractions all day, became more regular and painful after 3 PM. When she presented to labor and delivery she reported then q 6 to 10 minutes. her cervix was 4 cm dilated, 60% effaced head is -3 unchanged from office visit 2 days ago. She has walked around and came back with more regular and painful contractions. Now her cervix changed to 5 cm, 70%, -2 station with a bulging tight bag, now she is being admitted for labor. She denies leakage of fluid or vaginal bleeding. She reports good movements. Her has been uncomplicated except hypothyroidism, on levothyroxine. GBS negative. Allergies Allergy/AdvReac Type Severity Reaction Status Date / Time No Known Allergies Allergy Verified 05/05/25 19:58 Home Medications Medication Instructions Recorded Confirmed Type multivit-iron 18 mg-folic acid 400 1 tab PO DAILY 07/11/20 05/05/25 History mcg-calcium 500 mg-minerals tablet (Women's One Daily) famotidine 20 mg tablet 20 mg PO HS 05/05/25 05/05/25 History levothyroxine 50 mcg tablet 50 mcg PO DAILY 05/05/25 05/05/25 History Patient History Medical History Anemia Asthma Hypothyroid Irritable bowel syndrome (IBS) 2013 Family History Other No significant family history Social History Smoking Status: Never smoker Second Hand Exposure: No; Hx Alcohol Use: No Hx Substance Use: No Preferred Language: Macedonian Communication Ability: Effective Beliefs That Will Affect Care: None marital status: Single Current Living Situation: Family Feels Safe at Home: Yes Safety Concerns: Feels Safe At This Time Assistive Devices: None OB History 3 full-term 's on 2010, 2013 and 2018, uncomplicated. SAFETY AIDE History No history of STDs, no history of chlamydia, gonorrhea, herpes Review of Systems as per Subjective / HPI Physical Exam Constitutional: WD/WN, vitals as above well developed and well nourished Genitourinary: OB Exam Monitor Tracing: + external uterine monitor used and + category I Results & Data Vital Signs (Past 12 Hours) Vital Signs Temp Pulse Resp BP 05/05/25 20:02 36.7 C 81 18 119/69 05/05/25 19:45 36.7 C 81 18 119/69 Laboratory Results Lab Results 05/05/25 Range/Units 20:26 WBC 10.27 (4.8-10.8) K/ul RBC 4.19 L (4.20-5.40) M/uL Hgb 11.2 L (12.0-16.0) g/dl Hct 34.4 L (37.0-47.0) % MCV 82.1 (80.0-100.0) fL MCH 26.7 (25.0-34.0) pg MCHC 32.6 (32.0-36.0) g/dL RDW Std Deviation 42.0 (36.4-46.3) fL RDW Coeff of Sarah 14.4 (11.5-14.5) % Plt Count 179 (130-400) K/uL MPV 12.7 H (9.4-12.4) fL Immature Gran % (Auto) 0.8 % Neut % (Auto) 70.4 % Lymph % (Auto) 19.0 % [place] % (Auto) 9.3 % Eos % (Auto) 0.3 % Baso % (Auto) 0.2 % Neut # (Auto) 7.24 H (1.40-6.50) K/uL Lymph # (Auto) 1.95 (1.20-3.40) K/uL [place] # (Auto) 0.95 H (0.11-0.59) K/uL Eos # (Auto) 0.03 (0.00-0.50) K/uL Baso # (Auto) 0.02 (0.00-0.20) K/uL Immature Gran # (Auto) 0.08 (0.01-0.20) K/uL
[2025-05-05] MEDS: LACTATED RINGER'S 1,000 ML IV PRN (22:14)
[2025-05-05] MEDS ORDERED: SODIUM CHLORIDE 0.9% PF INJ 10 ML VIAL EPI STA (22:31)
[2025-05-05] MEDS ORDERED: BUPIVACAINE 0.25% PF 30 ML VIAL EPI PRN (22:31)
[2025-05-05] MEDS ORDERED: fentANYL 2 MCG/ML BUPIVacaine 0.125%-NSS 100ML BAG EPI PRN (22:31)
[2025-05-05] MEDS ORDERED: ROPIVACAINE 0.5% PF 5 MG/ML 20 ML VIAL EPI PRN (22:31)
[2025-05-05] MEDS ORDERED: LIDOCAINE 2% MPF LOCAL 5 ML VIAL EPI PRN (22:31)
[2025-05-05] MEDS ORDERED: diphenhydrAMINE 50 MG/ML VIAL IV PRN (22:31)
[2025-05-05] MEDS ORDERED: SODIUM CHLORIDE 0.9% PF INJ 10 ML VIAL EPI PRN (22:31)
[2025-05-05] MEDS ORDERED: LIDOCAINE 2%/EPINEPHRINE 1:200,000 20 ML PF EPI STA (22:31)
[2025-05-05] MEDS ORDERED: NALBUPHINE HCL INJ 10 MG/ML AMP IV PRN (22:31)
[2025-05-05] MEDS ORDERED: BUPIVACAINE 0.25% PF 30 ML VIAL EPI STA (22:31)
[2025-05-05] MEDS ORDERED: NALOXONE HCL 0.4 MG/1 ML VIAL/CARP IV PRN (22:31)
[2025-05-05] MEDS ORDERED: NALOXONE HCL 1 MG in SODIUM CHLORIDE 0.9% 1,000 ML IV PRN (22:31)
--- NOTE | 2025-05-05 22:34 | Anesthesiology Consultation ---
Date of Service May 05, 2025 Assessment & Plan Chart Review Chart Review: Patient NOT seen in Pre Admission Testing and Acceptable Risk for Labor Epidural Consults Requested none ASA ASA2 Proposed Anesthesia Anesthesia Type: Labor Epidural Risk / Benefits Reviewed With: PT / POA / Parent / Guardian, Accepts Plan and Informed Consent Obtained History Height/Weight Height: 5 ft 2 in Weight: 78.925 kg Allergies Allergy/AdvReac Type Severity Reaction Status Date / Time No Known Allergies Allergy Verified 05/05/25 19:58 Medications Home Medications Medication Instructions Recorded Confirmed Last Taken multivit-iron 18 mg-folic acid 400 1 tab PO DAILY 07/11/20 05/05/25 04/28/25 08:00 mcg-calcium 500 mg-minerals tablet (Women's One Daily) famotidine 20 mg tablet 20 mg PO HS 05/05/25 05/05/25 05/04/25 21:00 levothyroxine 50 mcg tablet 50 mcg PO DAILY 05/05/25 05/05/25 05/05/25 09:00 Active Medications Generic Name Dose Route Start Last Admin Trade Name Freq PRN Reason Stop Dose Admin Lactated Ringer's 1,000 mls @ 125 mls/hr 05/05/25 21:43 05/05/25 22:14 Lr IV 05/07/25 21:42 999 mls/hr .Q8H PRN Administration L&D Protocol Protocol NPO Date Last Intake of Fluids: 05/05/25 Time Last Intake of Fluids: 22:00 Date Last Intake of Solids: 05/05/25 Time Last Intake of Solids: 18:30 Past Medical History Medical History Anemia Asthma Hypothyroid Irritable bowel syndrome (IBS) 2013 Exercise / Class Metabolic Activity 1 > 8 Run/Swim/Ski/Tennis Past Family History Family History Other No significant family history Past Anesthesia History No Hx of Anesthesia Complications and No Family Hx of Anesthesia Complications History of PONV No Hx of PONV and No Hx of Motion Sickness Social History Smoking Status: Never smoker Hx Alcohol Use: No Hx Substance Use: No substance use type: does not use Review of Systems ROS Unobtainable: All systems reviewed & are unremarkable except as noted in HPI & below Physical Exam Vital Signs Last Vital Signs Temp 36.7 C 05/05/25 20:02 Pulse 81 05/05/25 20:02 Resp 18 05/05/25 20:02 BP 119/69 05/05/25 20:02 ENMT Mouth: no TMJ abnormality Thyromental Distance: > or= 3.5 Finger Breadths Mallampati Class: II Neck normal visual inspection and trachea midline; neck extension not limited Respiratory normal respiratory effort Auscultation: lungs clear to auscultation bilaterally Cardiovascular Rate/Rhythm: regular rate and regular rhythm Heart Sounds: no murmur Musculoskeletal Spine: normal cervical ROM Extremities: full ROM of extremities Neurologic moves all extremities Psychiatric Orientation: alert and oriented x 3 Testing Laboratory Results 05/05/25 20:26
[2025-05-05] MEDS: fentANYL 2 MCG/ML BUPIVacaine 0.125%-NSS 100ML BAG ONE (22:58)
[2025-05-05] MEDS: LIDOCAINE 2%/EPINEPHRINE 1:200,000 20 ML PF ONE (23:00)
[2025-05-05] MEDS: BUPIVACAINE 0.25% PF 30 ML VIAL ONE (23:00)
[2025-05-05] MEDS: SODIUM CHLORIDE 0.9% PF INJ 10 ML VIAL ONE (23:39)
--- NOTE | 2025-05-05 23:44 | Communication Note ---
Date of Service: May 05, 2025 After completing epidural with negative test dose, epidural was bolused with 8 cc 0.25% bupi and 100 mcg fentanyl incrementally. slight drop in blood pressure requiring one dose of ephedrine. Shortly after, epidural pump alarmed that there was an occlusion. Tubing and epidural pump changed out however same error message occurred. Attempted to flush saline through epidural catheter with significant resistance. Cut epidural sterilely and replaced tubing connector with continued resistance. Concern for occlusion at epidural catheter tip. Decision made to replace epidural catheter. Patient understanding and agreeable. Procedure performed per written record without complication. negative test dose. Epidural flowed well.
[2025-05-06] MEDS: CALCIUM CARBONATE 500 MG CHEWABLE TAB PO PRN (00:03)
--- NOTE | 2025-05-06 00:03 | Obstetrical Progress Note ---
Date of Service May 06, 2025 Assessment & Plan Admission and Anticipated Discharge Date Admission Date: May 05, 2025 Subjective Patient received epidural and comfortable now VE; 7/ 80%, large bulging bag, AROM'ed, light meconium, head at 0 station FHR categ I Continue to monitor closely Results & Data Vital Signs (Past 12 Hours) Vital Signs Temp Pulse Resp BP Pulse Ox 05/05/25 23:57 100 05/05/25 23:57 97 H 05/05/25 23:55 93 H 05/05/25 23:55 123/57 L 05/05/25 23:52 100 05/05/25 23:52 94 H 05/05/25 23:47 100 05/05/25 23:47 103 H 05/05/25 23:46 115 H 05/05/25 23:46 120/61 05/05/25 23:42 100 05/05/25 23:42 111 H 05/05/25 23:39 101 H 05/05/25 23:39 116/59 L 05/05/25 23:37 100 05/05/25 23:37 92 H 05/05/25 23:37 117/56 L 05/05/25 23:35 107 H 05/05/25 23:35 122/57 L 05/05/25 23:33 100 H 05/05/25 23:33 117/58 L 05/05/25 23:32 100 05/05/25 23:32 127 H 05/05/25 23:31 99 H 05/05/25 23:31 135/63 05/05/25 23:29 110 H 05/05/25 23:29 129/58 L 05/05/25 23:27 100 05/05/25 23:27 105 H 05/05/25 23:27 148/67 H 05/05/25 23:22 100 05/05/25 23:22 107 H 05/05/25 23:19 94 H 05/05/25 23:19 110/60 05/05/25 23:17 100 05/05/25 23:17 93 H 05/05/25 23:15 93 H 05/05/25 23:15 151/61 H 05/05/25 23:13 103 H 05/05/25 23:13 153/68 H 05/05/25 23:12 100 05/05/25 23:12 109 H 05/05/25 23:11 93 H 05/05/25 23:11 158/64 H 05/05/25 23:11 82 L 05/05/25 23:11 100 H 05/05/25 23:09 106 H 05/05/25 23:09 88/50 L 05/05/25 23:07 99 05/05/25 23:07 99 H 05/05/25 23:07 103 H 05/05/25 23:07 112/58 L 05/05/25 23:05 106 H 05/05/25 23:05 109/56 L 05/05/25 23:03 107 H 05/05/25 23:03 101/56 L 05/05/25 23:02 99 05/05/25 23:02 98 H 05/05/25 23:01 93 H 05/05/25 23:01 113/59 L 05/05/25 22:59 96 H 05/05/25 22:59 114/58 L 05/05/25 22:57 100 05/05/25 22:57 105 H 05/05/25 22:57 93 H 05/05/25 22:57 109/57 L 05/05/25 22:55 93 H 05/05/25 22:55 109/58 L 05/05/25 22:52 100 05/05/25 22:52 97 H 05/05/25 22:52 108/66 05/05/25 22:47 100 05/05/25 22:47 105 H 05/05/25 22:42 100 05/05/25 22:42 97 H 05/05/25 22:37 99 05/05/25 22:37 92 H 05/05/25 20:02 36.7 C 81 18 119/69 05/05/25 19:45 36.7 C 81 18 119/69
[2025-05-06] MEDS ORDERED: OXYTOCIN 30 UNITS/NSS 30 UNITS/500 ML BAG IV PRN (02:20)
[2025-05-06] MEDS ORDERED: MEASLES, MUMPS & RUBELLA VIRUS VACCINE (MMR) 0.5ML VIAL SQ ONE (02:20)
[2025-05-06] MEDS ORDERED: HYDROCORTISONE ACETATE 25 MG SUPP PR PRN (02:20)
[2025-05-06] MEDS ORDERED: DIPHTHER/TETAN/PERTUS Vaccine (Tdap, Adol/Adult) 0.5mL IM ONE (02:20)
[2025-05-06] MEDS: OXYTOCIN 30 UNITS/NSS 30 UNITS/500 ML BAG IV PRN (02:22)
--- NOTE | 2025-05-06 02:26 | Delivery Summary ---
Vaginal Delivery Summary Date of Service May 06, 2025 Vaginal Delivery Summary Patient was found to be fully dilated and desires to push. She pushed with 2 contractions and delivered the head when turtle sign was noted, unable to deliver anterior (left) shoulder with minimal traction. P osterior ( right ) shoulder was delivered while placing 2 fingers in the axilla without difficulty. then anterior shoulder and whole body was delivery. Nuchal cordx1, reduced. The baby was handed off to the mother. The cord was clampedx2 and cut. The vagina and perineum were checked and found to have 1s degree periurethral and hymenal laceration ( at 6 o'clock). Those were repaired with 4/0 vicryl with figure of 8 stiches. The placenta was delivered spontaneously as intact and complete. The uterus was explored and found to be empty. QBL was 130 ml. The fundus was firm The baby was a viable male infant, Apgars 8/9, the weight is pending The mother and the baby tolerated the procedure well. No complications happened other than mild shoulder dystocia and I was present during whole procedure.
[2025-05-06] MEDS: IBUPROFEN 600 MG TAB PO PRN (03:16)
[2025-05-06] MEDS: BENZOCAINE 20% SPRY 85 APPLN/85 GM CAN EXT PRN (03:17)
--- NOTE | 2025-05-06 03:46 | Anesthesia Procedure Note ---
Date of Service May 06, 2025 Anesthesia Post Epidural Note Vital Signs Vital Signs: Temp Pulse Resp BP Pulse Ox 37.0 C 72 18 117/57 L 99 05/05/25 23:59 05/06/25 03:18 05/06/25 03:20 05/06/25 03:18 05/06/25 02:12 Pain Intensity Bilateral Abdomen: Pain Intensity: 4 Notes Mental Status: alert / awake / arousable and participated in evaluation Nausea / Vomiting: adequately controlled Pain: adequately controlled Airway Patency, RR, SpO2: stable & adequate BP & HR: stable & adequate Hydration State: stable & adequate Neuraxial Anesthesia: was administered and sensory block is resolving Anesthetic Complications: no major complications apparent Epidural: Removed without complications and With tip intact
[2025-05-06] MEDS: ACETAMINOPHEN 325 MG TAB PO PRN (05:38)
[2025-05-06] MEDS: LEVOTHYROXINE SODIUM 50 MCG TABLET PO SCH (06:42)
[2025-05-06] MEDS: FERROUS SULFATE 325 MG TAB PO SCH (08:20)
[2025-05-06] MEDS: DOCUSATE SODIUM 100 MG CAP PO SCH (08:20)
[2025-05-06] MEDS: PRENATAL VITAMIN 1 TAB PO SCH (08:20)
[2025-05-06] MEDS ORDERED: FAMOTIDINE 20 MG TAB PO SCH (21:00)
[2025-05-07 06:47] LABS: Hematocrit (blood only) 29.0 % (37.0-47.0); Hemoglobin 9.5 g/dl (12.0-16.0); Mean Corpuscular Hemoglobin 26.8 pg (25.0-34.0); Mean Corpuscular Volume 81.9 fL (80.0-100.0); Platelet Count 157 K/uL (130-400); RDW Standard Deviation 43.3 fL (36.4-46.3); Red Blood Count 3.54 M/uL (4.20-5.40); White Blood Count 9.08 K/ul (4.8-10.8)
--- NOTE | 2025-05-07 08:34 | Obstetrical Progress Note ---
Date of Service May 07, 2025 Assessment & Plan Admission and Anticipated Discharge Date Admission Date: May 05, 2025 Subjective Patient is seen and examined. She feels well, no complaints. Ambulating without dizziness Voiding without difficulty Tolerating regular diet with out N&V Bleeding is minimal No fever/ chills/ CP/ SOB/ N&V/ Leg pain Breast feeding without problems Vital Signs Temp Pulse Pulse Resp BP BP Pulse Ox 05/07/25 03:16 36.5 C 61 18 98/63 L 98 05/06/25 23:00 36.5 C 72 18 115/79 98 05/06/25 18:55 36.7 C 63 16 123/80 100 05/06/25 17:10 36.5 C 80 18 134/87 99 05/06/25 12:42 36.6 C 70 16 116/78 05/06/25 11:29 36.5 C 67 16 117/73 98 O2 Del Method 05/07/25 03:16 Room Air 05/06/25 23:00 Room Air 05/06/25 18:55 Room Air 05/06/25 17:10 Room Air 05/06/25 12:42 05/06/25 11:29 Room Air Lab Results 05/05/25 05/05/25 05/06/25 Range/Units 20:26 21:52 07:00 WBC 10.27 (4.8-10.8) K/ul RBC 4.19 L (4.20-5.40) M/uL Hgb 11.2 L (12.0-16.0) g/dl Hct 34.4 L (37.0-47.0) % MCV 82.1 (80.0-100.0) fL MCH 26.7 (25.0-34.0) pg MCHC 32.6 (32.0-36.0) g/dL RDW Std Deviation 42.0 (36.4-46.3) fL RDW Coeff of Sarah 14.4 (11.5-14.5) % Plt Count 179 (130-400) K/uL MPV 12.7 H (9.4-12.4) fL Immature Gran % (Auto) 0.8 % Neut % (Auto) 70.4 % Lymph % (Auto) 19.0 % [place] % (Auto) 9.3 % Eos % (Auto) 0.3 % Baso % (Auto) 0.2 % Neut # (Auto) 7.24 H (1.40-6.50) K/uL Lymph # (Auto) 1.95 (1.20-3.40) K/uL [place] # (Auto) 0.95 H (0.11-0.59) K/uL Eos # (Auto) 0.03 (0.00-0.50) K/uL Baso # (Auto) 0.02 (0.00-0.20) K/uL Immature Gran # (Auto) 0.08 (0.01-0.20) K/uL Treponema pallidum Ab Negative (Negative) Blood Type O Negative O Negative Antibody Screen NEGATIVE Cancelled Screen Negative (Negative) 05/07/25 Range/Units 06:13 WBC 9.08 (4.8-10.8) K/ul RBC 3.54 L (4.20-5.40) M/uL Hgb 9.5 L (12.0-16.0) g/dl Hct 29.0 L (37.0-47.0) % MCV 81.9 (80.0-100.0) fL MCH 26.8 (25.0-34.0) pg MCHC 32.8 (32.0-36.0) g/dL RDW Std Deviation 43.3 (36.4-46.3) fL RDW Coeff of Sarah 14.5 (11.5-14.5) % Plt Count 157 (130-400) K/uL MPV 13.0 H (9.4-12.4) fL Immature Gran % (Auto) % Neut % (Auto) % Lymph % (Auto) % [place] % (Auto) % Eos % (Auto) % Baso % (Auto) % Neut # (Auto) (1.40-6.50) K/uL Lymph # (Auto) (1.20-3.40) K/uL [place] # (Auto) (0.11-0.59) K/uL Eos # (Auto) (0.00-0.50) K/uL Baso # (Auto) (0.00-0.20) K/uL Immature Gran # (Auto) (0.01-0.20) K/uL Treponema pallidum Ab (Negative) Blood Type Antibody Screen Screen (Negative) PE: General: Alert, orientedx3, NAD Abd: soft, NT, fundus firm, below Umbilicus Perineum intact, Lochia rubra minimal Ext; NT, no edema AP: 35 yo s/p , ppd# 1 VSS Afebrile doing well Continue routine care Desires d/c today All questions were answered D/C home , f/u in office Results & Data Vital Signs (Past 12 Hours) Vital Signs Temp Pulse Resp BP Pulse Ox O2 Del Method 05/07/25 03:16 36.5 C 61 18 98/63 L 98 Room Air 05/06/25 23:00 36.5 C 72 18 115/79 98 Room Air
[2025-05-07] MEDS: ACETAMINOPHEN 500 MG TAB PO PRN (08:36)
[2025-05-07 09:45] VITALS: BP 114/77; PULSE 68; RESP 16; TEMP 97.9; O2SAT 99
== END 2025-05-07 12:20 | disposition home health service (06) | DRG 807 ==
LOC: OPB 19:35 → 4S1 19:37 → 4E2 05-06 05:13